=== PATIENT | female | born 1970 | race Caucasian/White ===

== ENCOUNTER 2018-05-16 20:25 | Emergency (ER) | payer BC ==
--- NOTE | 2018-05-16 20:35 | EDM.PDOC ---
ED HPI GENERAL MEDICAL PROBLEM - General Chief Complaint: Head Injury Stated Complaint: HEAD INJURY, KNOCKED DOWN BY HORSE Time Seen by Provider: 05/16/18 20:28 Source of Information: Reports: Patient, Family, RN, RN Notes Reviewed History Limitations: Reports: Altered Mental Status - History of Present Illness INITIAL COMMENTS - FREE TEXT/NARRATIVE: Pt to ER with friend. He states she was knocked over by a foal and fell back and hit her head. He states she has had 2 head injuries in the past, including being kicked in the head by a horse. Friend states the patient vomited about 30 minutes after the incident, but was not knocked out at the time. He states she was talking to him right away. She is somewhat confused at this time, thought they were coming to the hospital to visit someone who is sick. Patient is alert and appropriately states her name and . She does not remember the incident of being knocked over by the horse. Patient c/o of painful lump on the back of her head, minimal pain to left forearm and left owens. Onset: Today, Sudden Right Occipital Head Pain Score (Numeric/FACES): 7 Left Arm Pain Score (Numeric/FACES): 4 Right Lumbar Pain Score (Numeric/FACES): 6 Left Lower Leg Pain Score (Numeric/FACES): 5 - Related Data Allergies Allergy/AdvReac Type Severity Reaction Status Date / Time No Known Allergies Allergy Verified 05/16/18 20:59 Home Meds: Home Meds ClonazePAM [KlonoPIN] 0.5 mg PO BEDTIME 05/16/18 [History] Diclofenac Sodium [Voltaren] 75 mg PO WITHBREAKFAST 05/16/18 [History] Montelukast [Singulair] 10 mg PO DAILY 05/16/18 [History] Norgestrel-Ethinyl Estradiol [Ogestrel Tablet] 1 tab PO DAILY 05/16/18 [History] ED ROS GENERAL - Review of Systems Review Of Systems: ROS reveals no pertinent complaints other than HPI. ED EXAM, HEAD INJURY - Physical Exam Exam: See Below Exam Limited By: Altered Mental Status General Appearance: Alert, WD/WN, Moderate Distress Head: Scalp Swelling, Scalp Abrasions, Scalp Hematoma, Scalp Tenderness. No: Active Bleeding, Kong's Sign, Facial Abrasions Nexus Criteria: Posterior, Midline Cervical Tenderness, Altered Level of Consciousness, Painful Distraction Injuries. No: Evidence of Intoxication, Focal Neurological Deficit Eyes: Bilateral Eye: EOMI, Normal Inspection, PERRL (4 brisk) Ears: Normal External Exam, Normal Canal, Hearing Grossly Normal, Normal TMs Nose: Normal Inspection, Normal Mucousa, No Blood Throat/Mouth: Normal Inspection, Normal Lips, Normal Teeth, Normal Gums, Normal Oropharynx, Normal Voice, No Airway Compromise Neck: Normal Alignment, Normal Inspection, Limited Range of Motion, Tender Lateral, Tender Midline Respiratory: No Respiratory Distress, Lungs Clear, Normal Breath Sounds, No Accessory Muscle Use, Chest Non-Tender Cardiovascular: Normal Peripheral Pulses, Regular Rate, Rhythm, No Edema, No Gallop, No JVD, No Murmur, No Rub GI/Abdominal Exam: Normal Bowel Sounds, Soft, Non-Tender (Female) Exam: Deferred Rectal (Female) Exam: Deferred Back Exam: Normal Inspection, Decreased Range of Motion Extremities: Normal Inspection, Arm Pain (left ), Leg Pain (left), Limited Range of Motion Neurologic: No Motor/Sensory Deficits, Alert. No: Oriented x 3 Skin: Normal Color, Warm/Dry - Erik Coma Score Best Eye Response (Erik): (4) Open Spontaneously Best Verbal Response (Erik): (4) Confused Conversation Best Motor Response (Erik): (6) Obeys Commands [place] Total: 14 Course - Vital Signs Last Recorded V/S: Last Vital Signs Temp 97.6 F 05/16/18 20:29 Pulse 92 05/16/18 20:29 Resp 18 05/16/18 20:29 BP 146/98 H 05/16/18 20:29 Pulse Ox 100 05/16/18 20:29 - Orders/Labs/Meds Orders: Active Orders 24 hr Category Date Time Status Peripheral IV Care [RC] . DIRECTED Care 05/16/18 20:47 Active Cervical Spine wo Cont [CT] Urgent Exams 05/16/18 20:34 Ordered Head wo Cont [CT] Urgent Exams 05/16/18 20:34 Taken Sodium Chloride 0.9% [Saline Flush] Med 05/16/18 20:47 Active 10 ml FLUSH ASDIRECTED PRN Peripheral IV Insertion Adult [OM.PC] Stat Oth 05/16/18 20:47 Ordered Medication Orders Sodium Chloride (Saline Flush) 10 ml FLUSH ASDIRECTED PRN PRN Reason: Keep Vein Open Last Admin: 10/01/18 21:06 Dose: 10 ml Labs: Laboratory Tests 05/16/18 05/16/18 Range/Units 20:42 20:42 WBC 10.1 H (5.0-10.0) 10^3/uL RBC 4.49 (4.2-5.4) 10^6/uL Hgb 15.1 (12.0-16.0) g/dL Hct 44.6 (37.0-47.0) % MCV 99.3 (80-100) fL MCH 33.6 (27.0-34.0) pg MCHC 33.9 (33.0-35.0) g/dL Plt Count 263 (150-450) 10^3/uL Neut % (Auto) 68.2 (42.2-75.2) % Lymph % (Auto) 23.0 (20.5-50.1) % [place] % (Auto) 6.9 (2-8) % Eos % (Auto) 1.4 (1.0-3.0) % Baso % (Auto) 0.5 (0.0-1.0) % Sodium 132 L (135-145) mmol/L Potassium 3.4 L (3.6-5.0) mmol/L Chloride 96 L (101-111) mmol/L Carbon Dioxide 26.0 (21.0-31.0) mmol/L Anion Gap 13.4 BUN 9 (7-18) mg/dL Creatinine 0.7 (0.6-1.3) mg/dL Est Cr Clr Drug Dosing 94.01 mL/min Estimated GFR (MDRD) > 60 BUN/Creatinine Ratio 12.85 Glucose 83 (74-105) mg/dL Calcium 8.9 (8.4-10.2) mg/dl Total Bilirubin 0.3 (0.2-1.0) mg/dL AST 19 (10-42) IU/L ALT 15 (10-60) IU/L Alkaline Phosphatase 50 (42-121) IU/L Total Protein 7.5 (6.7-8.2) g/dl Albumin 4.2 (3.2-5.5) g/dl Globulin 3.3 Albumin/Globulin Ratio 1.27 Meds: Medications Generic Name Dose Route Start Last Admin Trade Name Freq PRN Reason Stop Dose Admin Sodium Chloride 10 ml 10/01/18 20:47 05/16/18 21:06 Saline Flush FLUSH 10 ml ASDIRECTED PRN Administration Keep Vein Open Discontinued Medications Generic Name Dose Route Start Last Admin Trade Name Yady PRN Reason Stop Dose Admin Sodium Chloride 1,000 mls @ 999 mls/hr 05/16/18 20:47 05/16/18 21:07 Normal Saline IV 05/16/18 21:47 999 mls/hr .BOLUS ONE Administration Ondansetron HCl 4 mg 05/16/18 20:47 05/16/18 21:08 Zofran IV 05/16/18 20:48 4 mg ONETIME ONE Administration - Radiology Interpretation Free Text/Narrative:: Head CT: IMPRESSION: 1. Right posterior parietal scalp subgaleal hematoma. No acute intracranial abnormality. 2. Focus of probable subcortical calcification within the left frontal lobe. 3. Left sphenoid sinus air-fluid level and foamy debris. Sinusitis is possible in the upper per clinical setting. Thank you for allowing us to participate in the care of your patient. Dictated and Authenticated by: Celestino Torre MD 05/16/2018 9:24 PM Central Time ([place] & [place]) C spine: IMPRESSION: No evidence of acute fracture or malalignment of the cervical spine. Thank you for allowing us to participate in the care of your patient. Dictated and Authenticated by: Celestino Torre MD 05/16/2018 9:30 PM Central Time ([place] & [place]) See rad report - Re-Assessments/Exams Free Text/Narrative Re-Assessment/Exam: 05/16/18 22:10 [id number] [facility] called for transfer, as Dr. Rothman refused to admit the patient. States the patient needs to go to [facility]. [facility] is on diversion at this time. [id number] Dr[address] Fonseca, [facility], has agreed to accept the patient for transfer at this time. Departure - Departure Time of Disposition: 22:11 Disposition: DC/Tfer to Acute Hospital 02 Condition: Fair Clinical Impression: Concussion with no loss of consciousness - Discharge Information *PRESCRIPTION DRUG MONITORING PROGRAM REVIEWED*: No *COPY OF PRESCRIPTION DRUG MONITORING REPORT IN PATIENT DESTINY: No Forms: ED Department Discharge, Interfacility Transfer EMTALA - My Orders Last 24 Hours: My Active Orders 05/16/18 20:34 Cervical Spine wo Cont [CT] Urgent Head wo Cont [CT] Urgent 05/16/18 20:47 Peripheral IV Care [RC] . DIRECTED Sodium Chloride 0.9% [Saline Flush] 10 ml FLUSH ASDIRECTED PRN Peripheral IV Insertion Adult [OM.PC] Stat - Assessment/Plan Last 24 Hours: My Active Orders 05/16/18 20:34 Cervical Spine wo Cont [CT] Urgent Head wo Cont [CT] Urgent 05/16/18 20:47 Peripheral IV Care [RC] . DIRECTED Sodium Chloride 0.9% [Saline Flush] 10 ml FLUSH ASDIRECTED PRN Peripheral IV Insertion Adult [OM.PC] Stat
[2018-05-16] MEDS ORDERED: Sodium Chloride 0.9% 1,000 ML IV ONE (20:47)
[2018-05-16] MEDS ORDERED: Sodium Chloride 0.9% 10 ML Syringe FLUSH PRN (20:47)
[2018-05-16] MEDS ORDERED: Ondansetron 4 MG/2 ML SDV IV ONE (20:47)
[2018-05-16 21:07] LABS: ANION GAP 13.4; CHLORIDE,CL 96 mmol/L (101-111); SODIUM,NA 132 mmol/L (135-145)
== END 2018-05-16 22:46 ==
LOC: DL.ED 20:25
DX: S06.0X0A Concussion without loss of consciousness, initial encounter (principal); S00.03XA Contusion of scalp, initial encounter; M79.662 Pain in left lower leg; M79.632 Pain in left forearm; M54.5 Low back pain; W55.12XA Struck by horse, initial encounter
CPT/HCPCS: 36415; 70450; 72125; 80053; 85025; 96361; 96374; 99285; J2405; J7030; J7050